=== PATIENT | male | born 1980 | race Caucasian/White ===

== ENCOUNTER 2016-06-07 11:10 | Emergency (ER) | payer OTHER ==
[~2016-06-07] VITALS: Ht 175.3 cm; Wt 202.0 kg
[~2016-06-07 11:10] MED LIST: IBUPROFEN800 MG PO; LEXAPRO10 MG PO; MEDROL DOSEPAK4 MG PO; ULTRAM50 MG PO; VALIUM5 MG PO; Vicodin,Norco 5/325 PO
[2016-06-07] MEDS ORDERED: XALATAN2.5 ML BOTH EYES (12:30)
[2016-06-07 12:55] LABS: EOSINOPHIL (%) 5.3 % (0-5); EOSINOPHIL COUNT 0.4 K/uL (0-0.3); HEMATOCRIT 43.7 % (38.0-50.0); IMMATURE GRANULOCYTE (%) 0.4 % (0.0-0.7); LYMPHOCYTE COUNT 1.8 K/uL (1.0-2.8); MCH 28.8 PG (29.0-34.0); MCHC 32.7 G/DL (30.0-36.0); MCV 87.9 FL (86-99); MEAN PLAT.VOLUME 11.1 uM^3 (9.0-12.4); MONOCYTE (%) 9.2 % (3-12); MONOCYTE COUNT 0.7 K/uL (0-0.8); NEUTROPHIL (%) 62.3 % (45-76); PLATELET COUNT 203 K/uL (156-360); RBC DIS.WIDTH-CV 13.6 % (11.8-14.6); RBC DIS.WIDTH-SD 43.6 % (39-53); RED BLOOD COUNT 4.97 M/uL (4.00-5.50); WHITE BLOOD COUNT 7.9 K/uL (4.1-10.2)
[2016-06-07 13:04] LABS: CHLORIDE 104 mEq/L (99-109); POTASSIUM 4.3 mEq/L (3.7-5.4); SODIUM 139 mEq/L (136-147)
[2016-06-07 13:06] LABS: GLUCOSE 100 mg/dL (70-99)
[2016-06-07 13:07] LABS: ANION GAP 10 MEQ/L (2-14)
[2016-06-07 13:09] LABS: ALKALINE PHOSPHATASE 76 IU/L (3-129)
[2016-06-07 13:10] LABS: GFR ESTIMATE (CALCULATED) > 59 mL/min/
[2016-06-07 13:11] LABS: UREA NITROGEN (BUN) 10 mg/dL (9-23)
[2016-06-07 13:13] LABS: LIPASE 17 U/L (1.0-51.0)
[2016-06-07 15:00] LABS: ADD MIUA? NO; BILIRUBIN NEGATIVE; BLOOD NEGATIVE; COLOR YELLOW ((YELLOW)); GLUCOSE (STRIP) NEGATIVE; KETONES NEGATIVE; LEUKOCYTES NEGATIVE; NITRITE NEGATIVE; PROTEIN (STRIP) NEGATIVE; SPECIFIC GRAVITY 1.012 (1.000-1.030); UCUL ADDED? NO; UROBILINOGEN 0.2 MG/DL (0.2-1.0)
[2016-06-07] MEDS ORDERED: ZOFRAN4 MG PO (15:52)
[2016-06-07] MEDS ORDERED: ULTRAM50 MG PO (15:52)
[2016-06-07 16:13] VITALS: BP 105/89
== END 2016-06-07 16:11 | disposition home or self-care (01) ==
LOC: EME 11:10
PROVIDERS: Emergency Medicine
DX: R10.9 Unspecified abdominal pain (principal); R11.10 Vomiting, unspecified; R19.7 Diarrhea, unspecified; J45.909 Unspecified asthma, uncomplicated; G47.30 Sleep apnea, unspecified
CPT/HCPCS: 74176; 80053; 81003; 83605; 83690; 85025; 93005; 99281; 99285; J2405; J7030